=== PATIENT | female | born 1990 | race African-American/Black ===

== ENCOUNTER 2021-05-03 15:08 | Emergency (ER) | payer OTHER, SELFPAY ==
--- NOTE | 2021-05-03 | ECG_ITS ---
Test Reason : CHEST PAIN Blood Pressure : / mmHG Vent. Rate : 059 BPM Atrial Rate : 059 BPM P-R Int : 138 ms QRS Dur : 096 ms QT Int : 448 ms P-R-T Axes : 060 070 051 degrees QTc Int : 443 ms Sinus bradycardia RSR' or QR pattern in V1 suggests right ventricular conduction delay Nonspecific ST abnormality Abnormal ECG No previous ECGs available Referred By: Abel Loyd Electronically Signed By:LILLIAM LOPEZ MD
--- NOTE | ~2021-05-03 | XR_ITS ---
EXAMINATION: XR CHEST CLINICAL INFORMATION: Chest pain. COMPARISON: Chest done on 01/03/2020. TECHNIQUE: Frontal view of the chest was obtained. FINDINGS: Minimal blunting of the right lateral CP angle is noted, may represent trace amount of effusion, new since prior study. Both lung el are clear. The cardiomediastinal silhouette is within normal limit. No evidence of any pneumothorax. The visualized upper abdomen is unremarkable. XR/XR chest 1V IMPRESSION: Minimal blunting of the right lateral CP angle, may represent trace amount of effusion, new since 01/03/2020. Otherwise unremarkable.
[2021-05-03 15:32] VITALS: BP 124/74; BP 178/77; PULSE 84; PULSE 88; RESP 18; TEMP 36.8; O2SAT 100; O2SAT 99; BMI 20.3
[2021-05-03 16:59] LABS: MANUAL DIFF FLAG NO
[2021-05-03 17:01] LABS: Basophils Percent Auto 0.3 % (0-2); Eosinophils Absolute Auto 0.2 X10*3/uL (0.0-0.4); Hematocrit 42.8 % (37.0-47.0); Hemoglobin 14.3 g/dl (12.0-16.0); Imm Gran Abs Auto 0.02 X10*3/uL (0.00-0.03); Imm Gran Pct Auto 0.2 % (0.0-0.4); Lymphocytes Absolute Auto 2.4 X10*3/uL (1.2-4.9); Lymphocytes Percent Auto 24.4 % (20-40); Mean Corpuscular HGB Conc 33.4 g/dl (31.0-35.0); Mean Corpuscular Volume 89.9 fL (80.0-98.0); Mean Platelet Volume 11.3 fL (9.4-12.3); Monocytes Absolute Auto 0.9 X10*3/uL (0.1-1.2); Monocytes Percent Auto 9.5 % (2-11); Neutrophils Absolute Auto 6.1 x10*3/uL (2.0-8.3); Neutrophils Percent Auto 63.6 % (45-73); Platelet Count 227 X10*3/uL (160-400); Red Blood Count 4.76 X10*6/uL (4.20-5.50); Red Cell Distribution Width 13.1 % (11.0-16.0); White Blood Count 9.6 X10*3/uL (4.8-10.8)
[2021-05-03 17:14] LABS: Lactic Acid 0.9 mmol/L (0.5-2.0)
[2021-05-03 17:16] LABS: Anion Gap 13 (12-20); Blood Urea Nitrogen 12 mg/dL (9-16); Calcium 9.7 mg/dL (8.4-10.2); Carbon Dioxide 24 mmol/L (22-29); Chloride 104 mmol/L (96-108); Estimated Glomerular Filt Rate > 60; Glucose Random 88 mg/dL (60-115); Potassium 3.8 mmol/L (3.3-5.1); Sodium 137 mmol/L (135-145)
[2021-05-03 17:19] LABS: Appearance Urine CLEAR; Color Urine YELLOW; Glucose Urine UA NEG (NEG); Leukocyte Esterase Urine NEG (NEG); Nitrite Urine NEG (NEG); Specific Gravity - Urine 1.025 (1.005-1.025); Urine Blood NEG (NEG); Urine Ketones 5 MG/DL (NEG); Urine Protein NEG (NEG-TRACE)
--- NOTE | 2021-05-03 17:53 | ED_ITS ---
HPI - General Adult General Chief complaint: General Medical Stated complaint: SKIN INFECTION Time Seen by Provider: 05/03/21 17:42 Source: patient and EMS Mode of arrival: EMS Limitations: no limitations History of Present Illness HPI narrative: 30-year-old female with a past medical history of hydradenitis here with complaints of left upper extremity redness and swelling for about 1 month. Pain radiates to the chest and back. Today the abscess started draining on its own. no fevers or chills. Related Data Previous Rx's Medication Instructions Recorded acetaminophen 300 mg-codeine 30 mg 1 tab PO Q6H PRN #8 tab 05/03/21 tablet doxycycline monohydrate 100 mg 100 mg PO BID 7 Days #14 cap 05/03/21 capsule Allergies Allergy/AdvReac Type Severity Reaction Status Date / Time No Known Allergies Allergy Verified 05/03/21 15:31 [No Known Allergies*] Review of Systems Review of Systems: Yes all other systems are reviewed and are negative Constitutional: Constitutional: Reports no additional constitutional complaints, Denies body ache(s), Denies chills, Denies fever(s), Denies headache(s) and Denies weakness Eyes: Eyes: Reports no additional eye complaints and Denies change in vision ENT: Reports system reviewed and no additional complaints, except as documented, Denies dizziness, Denies headache(s), Denies nasal congestion, Denies nasal discharge and Denies neck pain Cardiovascular: Cardiovascular: Reports no additional cardiovascular complaints, Reports chest pain, Denies leg edema and Denies dyspnea Respiratory: Respiratory: Reports no additional respiratory complaints, Denies cough and Denies dyspnea Gastrointestinal: Gastrointestinal: Reports no additional gastrointestinal complaints, Denies abdominal pain, Denies diarrhea, Denies nausea and Denies vomiting Genitourinary: Genitourinary: Reports no additional female genitourinary complaints and Denies urinary incontinence Musculoskeletal: Musculoskeletal: Reports no additional musculoskeletal complaints, Reports back pain, Denies arthralgias, Denies joint swelling, Denies neck pain, Denies numbness and Denies tingling Integumentary/Breasts: Skin/Breast: Reports system reviewed and no additional complaints, except as docu, Reports swelling, Reports erythema and Denies rash Neurologic: Reports system reviewed and no additional complaints, except as documented, Denies Abnormal speech present, Denies dizziness, Denies headache(s), Denies numbness, Denies tingling and Denies weakness PMFSH Past Medical History Attestation statement: The following information was validated with the patient. Source: old records reviewed and nursing notes reviewed Medical History Hidradenitis suppurativa Social History Social History Advance Directives: No Advance Directives Information Provided: Yes Patient : No Physical Exam Vital Signs: Vital Signs: Last Vital Signs Temp 98.3 F 05/03/21 15:32 Pulse 84 05/03/21 15:32 Resp 18 05/03/21 15:32 BP 178/77 H 05/03/21 15:32 Pulse Ox 99 05/03/21 15:32 Body Mass Index 20.3 Const: General: cooperative, healthy appearing, comfortable and no acute distress Orientation/consciousness: patient oriented x3 Limitations: no limitations HENMT: Head: Yes normal to inspection Ears: hearing grossly normal bilaterally General nose exam: Normal external nose present Face and sinus: Yes normal facial exam Mouth: Normal oral and palatal mucosa present Throat: Yes posterior oropharynx normal Eyes: General: appearance normal, both eyes and all related structures Pupils: Equal, round and reactive pupils present Neck: Neck: Yes normal visual inspection Chest: Chest palpation & inspection: normal inspection of the chest Resp: Effort & Inspection: normal respiratory effort Auscultation: clear to auscultation bilaterally Cardio: Rate: regular rate Rhythm: regular rhythm Peripheral pulses: Peripheral pulses 2+ throughout GI: Inspection: Yes normal to inspection Palpation (GI): Soft to palpation and nontender Auscultation: normal bowel sounds Back/Spine/Pelvis: Thoracic/Lumbar Spine: thoracic and lumbar spine normal to inspection Skin: General skin exam: no rashes or lesions noted Neuro: General: patient oriented x3, no focal motor deficits and normal sensation to monofilament Cranial nerves: Yes Equal, round and reactive pupils present Cognition (Neuro): normal cognition Speech: No Abnormal speech present Gait exam (Neuro): Normal gait present Motor exam (neuro): 5/5 motor strength present throughout Extrem: Other: To the left upper inner extremity there is a medium-sized abscess with drainage present. Local swelling and erythema which is not circumferential. General: Yes normal to inspection Course Course Course Narrative: 30-year-old female here with abscess the left upper extremity for about 1 week that is now draining. No fevers or chills. Pain does radiate to the chest and back. Reviewed labs, chest x-ray and EKG from triage. All unremarkable. Will need I&D and course of antibiotics. See procedure note Procedures Abscess I/D Site: upper extremity Side (if applicable): left Local Anesthetic: lidocaine 2% Amount of anesthesia used (mL): 5 Technique: incised with blade Sent for culture/gram staining?: No Irrigation: No Packing used?: iodoform Medical Decision Making MDM Narrative Medical decision making narrative: Perc score 0 Less likely ACS with negative troponin and EKG Medical Records Medical records reviewed: Yes I reviewed the patient's medical records. Lab Data Lab results reviewed: Yes I reviewed the patient's lab results. Result diagrams: 05/03/21 16:53 05/03/21 16:53 Labs: Lab Results 05/03/21 05/03/21 05/03/21 Range/Units 16:53 16:53 16:53 WBC 9.6 (4.8-10.8) X10*3/uL RBC 4.76 (4.20-5.50) X10*6/uL Hgb 14.3 (12.0-16.0) g/dl Hct 42.8 (37.0-47.0) % MCV 89.9 (80.0-98.0) fL MCH 30.0 (27.0-33.0) pg MCHC 33.4 (31.0-35.0) g/dl RDW 13.1 (11.0-16.0) % Plt Count 227 (160-400) X10*3/uL MPV 11.3 (9.4-12.3) fL Immature Gran % (Auto) 0.2 (0.0-0.4) % Neut % (Auto) 63.6 (45-73) % Lymph % (Auto) 24.4 (20-40) % [place] % (Auto) 9.5 (2-11) % Eos % (Auto) 2.0 (0-4) % Baso % (Auto) 0.3 (0-2) % Lymph # (Auto) 2.4 (1.2-4.9) X10*3/uL Summers # (Auto) 0.9 (0.1-1.2) X10*3/uL Eos # (Auto) 0.2 (0.0-0.4) X10*3/uL Baso # (Auto) 0.0 (0.0-0.2) X10*3/uL Abs Immat Gran (auto) 0.02 (0.00-0.03) X10*3/uL Absolute Neuts (auto) 6.1 (2.0-8.3) x10*3/uL Absolute Nucleated RBC 0.000 (0.0-0.012) X10*3/uL Nucleated RBC % (auto) 0.0 (0.0-0.2) /100WBC Sodium 137 (135-145) mmol/L Potassium 3.8 (3.3-5.1) mmol/L Chloride 104 (96-108) mmol/L Carbon Dioxide 24 (22-29) mmol/L Anion Gap 13 (12-20) BUN 12 (9-16) mg/dL Creatinine 0.78 (0.5-1.4) mg/dL Estim Creat Clear Calc 86.0 Estimated GFR > 60 Random Glucose 88 (60-115) mg/dL Lactic Acid 0.9 (0.5-2.0) mmol/L Calcium 9.7 (8.4-10.2) mg/dL Urine Color Urine Appearance Urine pH (5.0-8.0) Ur Specific [place] (1.005-1.025) Urine Protein (NEG-TRACE) MG/DL Urine Glucose (UA) (NEG) MG/DL Urine Ketones (NEG) MG/DL Urine Blood (NEG) Urine Nitrite (NEG) Ur Leukocyte Esterase (NEG) 05/03/21 Range/Units 17:11 WBC (4.8-10.8) X10*3/uL RBC (4.20-5.50) X10*6/uL Hgb (12.0-16.0) g/dl Hct (37.0-47.0) % MCV (80.0-98.0) fL MCH (27.0-33.0) pg MCHC (31.0-35.0) g/dl RDW (11.0-16.0) % Plt Count (160-400) X10*3/uL MPV (9.4-12.3) fL Immature Gran % (Auto) (0.0-0.4) % Neut % (Auto) (45-73) % Lymph % (Auto) (20-40) % Summers % (Auto) (2-11) % Eos % (Auto) (0-4) % Baso % (Auto) (0-2) % Lymph # (Auto) (1.2-4.9) X10*3/uL [place]mers # (Auto) (0.1-1.2) X10*3/uL Eos # (Auto) (0.0-0.4) X10*3/uL Baso # (Auto) (0.0-0.2) X10*3/uL Abs Immat Gran (auto) (0.00-0.03) X10*3/uL Absolute Neuts (auto) (2.0-8.3) x10*3/uL Absolute Nucleated RBC (0.0-0.012) X10*3/uL Nucleated RBC % (auto) (0.0-0.2) /100WBC Sodium (135-145) mmol/L Potassium (3.3-5.1) mmol/L Chloride (96-108) mmol/L Carbon Dioxide (22-29) mmol/L Anion Gap (12-20) BUN (9-16) mg/dL Creatinine (0.5-1.4) mg/dL Estim Creat Clear Calc Estimated GFR Random Glucose (60-115) mg/dL Lactic Acid (0.5-2.0) mmol/L Calcium (8.4-10.2) mg/dL Urine Color YELLOW Urine Appearance CLEAR Urine pH 6.0 (5.0-8.0) Ur Specific [place] 1.025 (1.005-1.025) Urine Protein NEG (NEG-TRACE) MG/DL Urine Glucose (UA) NEG (NEG) MG/DL Urine Ketones 5 (NEG) MG/DL Urine Blood NEG (NEG) Urine Nitrite NEG (NEG) Ur Leukocyte Esterase NEG (NEG) Imaging Data Chest x-ray: Attestation: I personally reviewed and interpreted this imaging study as follows: Radiologist's impression: CLINICAL INFORMATION: Chest pain. COMPARISON: Chest done on 01/03/2020. TECHNIQUE: Frontal view of the chest was obtained. FINDINGS: Minimal blunting of the right lateral CP angle is noted, may represent trace amount of effusion, new since prior study. Both lung el are clear. The cardiomediastinal silhouette is within normal limit. No evidence of any pneumothorax. The visualized upper abdomen is unremarkable. XR/XR chest 1V IMPRESSION: Minimal blunting of the right lateral CP angle, may represent trace amount of effusion, new since 01/03/2020. Otherwise unremarkable. ? ECG Data Attestation: I personally reviewed and interpreted this ECG as follows: Interpretation: Normal sinus rhythm with a rate 59, normal MA, normal QRS, normal QT Discharge Plan Discharge Clinical Impression: Hidradenitis suppurativa of left axilla, Atypical chest pain Patient Disposition: Home, Self-Care Instructions: Chest Wall Pain (ED), Hidradenitis Suppurativa (ED) Additional Instructions: Return for packing removal in 48 hours Prescriptions: New acetaminophen-codeine 300-30 mg tablet 1 tab PO Q6H PRN (Reason: pain) Qty: 8 RF: 0 doxycycline monohydrate 100 mg capsule 100 mg PO BID 7 Days Qty: 14 RF: 0 Referrals: Physician,Unknown J [Primary Care Provider] - 2 days
[2021-05-03] MEDS: Acetaminophen 325 MG TABLET 975 MG PO (18:38)
[2021-05-03] MEDS: Lidocaine HCl 2 % MPF 5 ML VIAL SUBCUT (18:38)
[2021-05-03 18:44] VITALS: BP 112/70; PULSE 77; RESP 14; TEMP 37; O2SAT 100
== END 2021-05-03 19:11 | disposition home or self-care (01) ==
PROVIDERS: Emergency Provider Emergency Medicine Emergency Medical Services
DX: L73.2 Hidradenitis suppurativa (principal); R07.89 Other chest pain
CPT/HCPCS: 10060; 36415; 71045; 80048; 81003; 83605; 85025; 87040; 93005; 99284

== ENCOUNTER 2021-10-17 12:29 | Emergency (ER) | payer OTHER, SELFPAY ==
--- NOTE | ~2021-10-17 | XR_ITS ---
EXAMINATION: XR SHOULDER, RIGHT CLINICAL INFORMATION: Pain, history subluxation/dislocation COMPARISON: Radiographs right shoulder 01/03/2020 TECHNIQUE: Right shoulder is imaged in 3 views. Preliminary wet read provided earlier at time of IT down time. FINDINGS: No fracture, dislocation, destructive process. The acromioclavicular alignment is normal. The glenohumeral joint appears normal. There are no visible rotator cuff calcifications. XR/XR shoulder RT min 2V IMPRESSION: Unremarkable right shoulder.
--- NOTE | ~2021-10-17 | XR_ITS ---
EXAMINATION: XR HAND, RIGHT CLINICAL INFORMATION: Metacarpal tenderness COMPARISON: Metacarpal tenderness. TECHNIQUE: Right hand is imaged in 3 views. Preliminary wet read provided earlier during IT downtime. FINDINGS: No fracture, dislocation, or arthropathy. The ulnar variance is neutral. There is no joint narrowing or erosive changes. Normal bony mineralization. XR/XR hand RT min 3V IMPRESSION: Normal right hand.
[2021-10-17 13:06] VITALS: BP 149/42; PULSE 66; RESP 18; TEMP 36.7; O2SAT 99; BMI 21.2
[2021-10-17] MEDS: Ketorolac Tromethamine 30 MG/ML VIAL IM (13:33)
--- NOTE | 2021-10-17 13:43 | ED_ITS ---
HPI - Extremity Problem General Chief complaint: Extremity Injury, Upper Stated complaint: jammed finger/shoulder pain Time Seen by Provider: 10/17/21 13:27 Source: patient Mode of arrival: ambulatory Limitations: no limitations History of Present Illness HPI Narrative: 31-year-old female presents with right middle finger pain and pain in her right shoulder. Patient states 2 days ago she was playing with her children, and hit her right middle finger on a metal heater In addition, patient states that her right shoulder has been dislocating more frequently. States for the last year her right shoulder will ?pop out? and it is painful to move her right shoulder. No trauma. She did have a fall years ago, but no recent trauma. States the right shoulder dislocating can happen 3 or 4 times a day and is happening more often this last week. She has never seen orthopedics for this. Related Data Previous Rx's Medication Instructions Recorded acetaminophen 300 mg-codeine 30 mg 1 tab PO Q6H PRN #8 tab 05/03/21 tablet doxycycline monohydrate 100 mg 100 mg PO BID 7 Days #14 cap 05/03/21 capsule ketorolac 10 mg tablet 10 mg PO Q6H 5 Days #20 tab 10/17/21 Allergies Allergy/AdvReac Type Severity Reaction Status Date / Time No Known Allergies Allergy Verified 05/03/21 15:31 [No Known Allergies*] Review of Systems Constitutional: Constitutional: Denies body ache(s), Denies chills, Denies fa tigue, Denies fever(s), Denies headache(s), Denies malaise and Denies weakness Eyes: Eyes: Denies diplopia ENT: Denies vertigo, Denies dizziness, Denies headache(s) and Denies throat swelling Cardiovascular: Cardiovascular: Denies chest pain, Denies syncope, Denies leg edema, Denies lightheadedness, Denies Loss of Consciousness, Denies palpitations and Denies dyspnea Respiratory: Respiratory: Denies chest congestion, Denies cough and Denies dyspnea Gastrointestinal: Gastrointestinal: Denies abdominal pain, Denies hematochezia, Denies constipation, Denies diarrhea and Denies vomiting Musculoskeletal: Musculoskeletal: Reports arthralgias, Reports joint swelling, Reports limited range of motion, Denies numbness, Reports stiffness and Denies tingling Integumentary/Breasts: Skin/Breast: Denies erythema, Denies skin pain, Denies skin swelling and Denies wounds Neurologic: Denies confusion, Denies vertigo, Denies dizziness, Denies syncope, Denies headache(s), Denies numbness, Denies tingling and Denies weakn ess Psychiatric: Psychiatric: Denies anxiety, Denies confusion and Denies depression Endocrine: Endocrine: Denies fatigue and Denies palpitations Allergic/Immunologic: Allergic/Immunologic: Denies throat swelling PMFSH Past Medical History Medical History Hidradenitis suppurativa Social History Social History Advance Directives: No Advance Directives Information Provided: No Patient : No Physical Exam Vital Signs: Vital Signs: Last Vital Signs Temp 98.0 F 10/17/21 13:06 Pulse 66 10/17/21 13:06 Resp 18 10/17/21 13:06 BP 149/42 H 10/17/21 13:06 Pulse Ox 99 10/17/21 13:06 BMI result Body Mass Index 21.2 Const: General: No confusion Nutritional Appearance: well nourished Orientation/consciousness: No confusion Limitations: no limitations Eyes: Conjunctivae: conjunctivae normal Pupils: Equal, round and reactive pupils present EOM: EOMs intact bilaterally Neck: Neck: Yes full ROM, Yes no lymphadenopathy and Yes supple Resp: Effort & Inspection: normal respiratory effort and able to speak in complete sentences Auscultation: clear to auscultation bilaterally, no crackles, no rales, no rhonchi and no wheezes Cardio: Rate: regular rate Rhythm: regular rhythm Heart sounds: S1 normal heart sound present and S2 normal heart sound present GI: Inspection: Yes normal to inspection Palpation (GI): Soft to palpation, nontender, no guarding and not rigid Percussion: Yes normal to percussion Auscultation: normal bowel sounds Skin: General skin exam: no rashes or lesions noted Neuro: General: No confusion Cranial nerves: Yes Equal, round and reactive pupils present Extrem: Right upper extremity: normal capillary refill, shoulder/upper arm Details: normal to inspection, tenderness Location: of the A-C joint and of the proximal humerus and abnormal ROM Details: pain with active ROM Details: in ADduction, in ABduction, in extension, in flexion, in internal rotation and external rotation-; Negative for no swelling and Extremity exam: right hand Details: abnormal to inspection Details: joint swelling, normal capillary refill, neuromotor exam normal, neurosensory exam normal, tenderness Location: of the 3rd digit Location: at the PIP joint and swelling Location: of the 3rd digit Location: at the PIP joint and on the dorsal aspect Psych: Appearance: grossly normal Affect: normal affect Attitude: coop erative Thought process: Normal thought process present Course Course Course Narrative: 31-year-old female with no known connective tissue disorder presents with right middle finger pain after hitting her finger on a metal heater, and right shoulder pain after multiple subluxations or dislocations of her right shoulder On exam, patient has intact range of motion of right elbow, she is tender over her entire right shoulder, no localized pain. Patient cannot range her right shoulder due to pain. In addition, patient has swelling, and tenderness over right middle fingers specially dorsal aspect of PIP joint. Patient also has tenderness to palpation in all of her metacarpal bones of her right hand. Intact right upper extremity pulses, sensation, patient has good production operations inspector strength. X-ray hand, shoulder, right 3rd finger, gave Toradol. Reevaluation(s) Reevaluation #1: X-ray right shoulder and right hand negative for fracture. Our PACS is down, this was a handwritten report. No mention of finger on paper x-ray report, I called x-ray tech, she stated x- ray right middle finger was negative per radiologist Will give shoulders Rafael, his finger splint, follow-up with orthopedics. Ketorolac Discharge Plan Discharge Clinical Impression: Finger sprain, Right shoulder pain Patient Disposition: Home, Self-Care Instructions: Finger Sprain (ED), R.I.C.E. Treatment (ED), Shoulder Pain (ED) Additional Instructions: Please call Dr. Zarate and the following number, he is an orthopedist. [phone] I have referred you, but I would also like you to call him. Please rest the right hand, use the sling for shoulder, and this been free of finger. If you have worsening pain, please return to emergency. Prescriptions: New ketorolac 10 mg tablet 10 mg PO Q6H 5 Days Qty: 20 0RF No Action acetaminophen-codeine 300-30 mg tablet 1 tab PO Q6H PRN (Reason: pain) Qty: 8 0RF doxycycline monohydrate 100 mg capsule 100 mg PO BID 7 Days Qty: 14 0RF Referrals: Tonio Zarate MD [Physician] -
[2021-10-17] MEDS: oxyCODONE HCl Immed Release 5 MG TABLET PO (15:03)
== END 2021-10-17 16:07 | disposition home or self-care (01) ==
PROVIDERS: Emergency Provider Emergency Medicine
DX: S63.612A Unspecified sprain of right middle finger, initial encounter (principal); M25.511 Pain in right shoulder; W22.09XA Striking against other stationary object, initial encounter; Y93.9 Activity, unspecified; Y92.9 Unspecified place or not applicable; Y99.9 Unspecified external cause status
CPT/HCPCS: 73030; 73130; 96372; 99283; 99284; J1885

== ENCOUNTER 2022-01-19 15:30 | Emergency (ER) | payer OTHER, SELFPAY ==
[2022-01-19 15:38] VITALS: BP 118/75; PULSE 92; RESP 18; TEMP 38.1; O2SAT 99; BMI 21.2
[2022-01-19 16:07] LABS: COVID-19 Test Positive (Negative)
[2022-01-19] MEDS: Cyclobenzaprine HCl 10 MG TABLET PO (17:41)
[2022-01-19] MEDS: Ibuprofen 800 MG TABLET PO (17:41)
[2022-01-19] MEDS: Lidocaine HCl 1 % MPF 5 ML VIAL SUBCUT (17:42)
--- NOTE | 2022-01-19 18:07 | ED_ITS ---
HPI - General Adult General Chief complaint: General Medical Stated complaint: Neck pain/Body aches Time Seen by Provider: 01/19/22 17:06 Source: patient Mode of arrival: ambulatory Limitations: no limitations History of Present Illness HPI narrative: 31-year-old female with a past medical history of Hirdradenitis suppurative presenting to ER with complaints of chills, fatigue, malaise, intermittent dry cough since yesterday worse today. She also reports an abscess to her left armpit for the past few days. She reports she had a positive COVID test at home. Reports that she is vaccinated for to COVID. She denies any recent travel or sick contacts. She denies any measured fevers at home due to she did not have a thermometer. She denies any dizziness, neck stiffness, sore throat, trouble swallowing or breathing, trismus, drooling, productive cough, shortness of breath, chest pain, dyspnea on exertion, orthopnea, palpitations, nausea/vomiting/diarrhea constipation, black or bloody stools, dysuria, h ematuria, abnormal vaginal discharge, rashes or any other symptoms complaints or concerns at this time. Related Data Previous Rx's Medication Instructions Recorded acetaminophen 300 mg-codeine 30 mg 1 tab PO Q6H PRN pain #8 tabs 05/03/21 tablet doxycycline monohydrate 100 mg 100 mg PO BID 7 days #14 caps 05/03/21 capsule ketorolac 10 mg tablet 10 mg PO Q6H 5 days #20 tabs 10/17/21 acetaminophen 500 mg tablet 1,000 mg PO QID PRN fever or pain 01/19/22 (Tylenol Extra Strength) #14 tabs cephalexin 500 mg capsule 500 mg PO Q6H 10 days #40 caps 01/19/22 codeine 10 mg-guaifenesin 100 mg/5 5 ml PO Q6H PRN cold symptoms #120 01/19/22 mL oral liquid (Guaifenesin AC) mL cyclobenzaprine 10 mg tablet 10 mg PO Q8H PRN Muscle spasm #14 01/19/22 tabs doxycycline monohydrate 100 mg 100 mg PO BID 10 days #20 tabs 01/19/22 tablet ibuprofen 800 mg tablet 800 mg PO Q8H PRN pain #14 tabs 01/19/22 Allergies Allergy/AdvReac Type Severity Reaction Status Date / Time No Known Allergies Allergy Verified 01/19/22 15:38 [No Known Allergies*] Review of Systems Review of Systems: Constitutional : No Weight loss, + Fever, + Chills, No Night Sweats, + Fatigue, + Malaise ENT/Mouth : No Hearing loss, No Ear Pain, No Nasal Congestion, No Sinus Pain, No Hoarseness, No sore throat, No Rhinorrhea, No Swallowing Difficulty Eyes: No Eye Pain, No Swelling, No Redness, No Foreign Body, No Discharge, No Vision Changes Cardiovascular : No Chest Pain, No SOB, No Dyspnea on Exertion, No Orthopnea, No Edema, No Palpitations Respiratory : + Cough, No Sputum, No Wheezing, No Smoke Exposure, No Dyspnea Gastrointestinal : No Nausea, No Vomiting, No Diarrhea, No Constipation, No abdominal Pain, No Hematochezia, No Melena Genitourinary : no irregular bleeding, No Dysuria, No Urinary Frequency, No Hematuria, No Urinary Incontinence, No Urgency, No Flank Pain, No Urinary Flow Changes, No Hesitancy Musculoskeletal : No joint pain, + Myalgias, No Joint Swelling Skin : + left axillary abscess, No Skin Lesions, No rash Neuro : No Weakness, No Numbness, No Paresthesias, No Loss of Consciousness, No Dizziness, No Headache Psych : No Anxiety/Panic, No Depression, No SI/HI/AH/VH, No Social Issues, Heme/Lymph: No Bruising, No Bleeding,No Lymphadenopathy Endocrine : No Polyuria, No Polydipsia, No Temperature Intolerance Yes all other systems are reviewed and are negative [facility] Past Medical History Attestation statement: The following information was validated with the patient. Source: old records reviewed and nursing notes reviewed Medical History Hidradenitis suppurativa Social History Social History Advance Directives: No Advance Directives Information Provided: No Physical Exam ED Vital Signs: Vital Signs - 24 hr 01/19/22 15:38 Temperature 100.6 F H Pulse Rate 92 Respiratory Rate 18 Blood Pressure 118/75 Pulse Oximetry 99 Oxygen Delivery Method Room Air BMI result Body Mass Index 21.2 vital signs have been reviewed as normal and appeared to be correct. Blood pressure normal. Heart rate normal. Respiration rate normal. Temperature 100.6. Oxygen saturation normal. Appearance: Alert. Oriented X3. No acute distress. Head: Normal external exam. Normocephalic. Atraumatic. Eyes: PERRLA. EOMI. Conjunctiva and sclera normal. Eyelids normal. ENT: EAC normal. TM's Normal. Pharynx normal. Uvula midline. Moist mucous membranes. No lesions/ulcerations or masses noted on the tongue. Normal voice. No trismus noted. No drooling noted. No muffled voice noted. Neck: Normal inspection. Neck supple. FROM. No adenopathy. Thyroid Normal. No tracheal deviation noted. No crepitus is noted. No meningeal signs. CVS: Normal heart rate and rhythm. Heart sound normal. Pulses normal throughout. No murmurs/rales/gallops. Respiratory: No respiratory distress. Painless inspiration. Breath sounds normal. No wheezes/rales/rhonchi noted. Chest nontender. No accessory muscle usage noted or decreased air movement noted. Abdomen: Soft and nontender. Bowel sounds normal in all 4 quadrants. No distention noted. No organomegaly noted. No visible injury noted. Back: No CVA tenderness. Full range of motion noted. Nontender. No signs of trauma. Patient neuro intact bilaterally and distally on all 4 extremities. Patient's reflexes intact bilaterally and distally on all 4 extremities. No rashes/lesion/induration/fluctuance or signs of infection noted. Skin: Skin warm and dry. Normal skin color. Normal skin turgor. To left axillary area patient has fluctuant abscess with mild surrounding erythema. No streaking/purulent drainage at this time. No additional rashes/lesions/lacerations noted. Extremities: Extremities exhibit normal range of motion and nontender. Neuro: Oriented X 3. No motor deficit. No sensory deficit. Reflexes normal. Normal steady gait. No focal neuro deficits noted. CN's II-XII intact bilaterally? Vascular: + radial pulses/+ 2 distal pedal pulses/+2 dorsalis pedis b/l. Normal cap refill. No cyanosis noted to upper extremity nails and lower extremity toes nails. Course Course Course Narrative: Patient positive for COVID. No additional labs or imaging indicated. Patient now status post I&D of abscess to the left axillary area. Patient tolerated procedure well. No packing. No complications. Will DC home with antibiotics and symptomatic treatment instructions to self isolate per CDC guidelines and to return if any new or worsening symptoms. Patient understands agrees with this plan. Procedures Abscess I/D Site: upper extremity Side (if applicable): left Local Anesthetic: lidocaine 1% Amount of anesthesia used (mL): 4 Technique: incised with blade Amount of fluid expressed (mL): 5 Sent for culture/gram staining?: No Irrigation: Yes Packing used?: none Complications: other (No complications) Medical Decision Making Medical Records Medical records reviewed: Yes I reviewed the patient's medical records. Lab Data Lab results reviewed: Yes I reviewed the patient's lab results. Labs: Lab Results 01/19/22 Range/Units 15:45 COVID-19 (MELE) Positive A (Negative) COVID-19 Clin Com See Note Discharge Plan Discharge Clinical Impression: Suppurative hidradenitis, COVID-19, Fever Patient Disposition: Home, Self-Care Instructions: Hidradenitis Suppurativa (ED), COVID-19 (Coronavirus Disease 2019) (ED) Additional Instructions: Monitor your oxygen levels with a pulse oximetry monitor if your oxygen drops lower than 90% then you need to return immediately. Otherwise an oxygen level of 90-100 is normal. You should also alternate between Motrin Tylenol every 3 hours therefore he take Motrin at 06:00 he should take Tylenol at 09:00 then Motrin again at 12 in the afternoon then Tylenol again at 3 in the afternoon and Motrin again at 6 in the afternoon than Tylenol again at 9 in the afternoon and continue alternating between Motrin Tylenol every 3 hours. Please self isolate per CDC guidelines. Return if any new or worsening symptoms. Prescriptions: New cyclobenzaprine 10 mg tablet 10 mg PO Q8H PRN (Reason: Muscle spasm) Qty: 14 0RF ibuprofen 800 mg tablet 800 mg PO Q8H PRN (Reason: pain) Qty: 14 0RF acetaminophen [Tylenol Extra Strength] 500 mg tablet 1,000 mg PO QID PRN (Reason: fever or pain) Qty: 14 0RF codeine-guaifenesin [Guaifenesin AC] 10-100 mg/5 mL liquid 5 ml PO Q6H PRN (Reason: cold symptoms) Qty: 120 0RF cephalexin 500 mg capsule 500 mg PO Q6H 10 Days Qty: 40 0RF doxycycline monohydrate 100 mg tablet 100 mg PO BID 10 Days Qty: 20 0RF No Action acetaminophen-codeine 300-30 mg tablet 1 tab PO Q6H PRN (Reason: pain) Qty: 8 0RF doxycycline monohydrate 100 mg capsule 100 mg PO BID 7 Days Qty: 14 0RF ketorolac 10 mg tablet 10 mg PO Q6H 5 Days Qty: 20 0RF Referrals: Physician,Unknown J [Primary Care Provider] - 1 week (your pcp)
== END 2022-01-19 18:40 | disposition home or self-care (01) ==
PROVIDERS: Emergency Provider Emergency Medicine
DX: U07.1 COVID-19 (principal); R50.9 Fever, unspecified; L73.2 Hidradenitis suppurativa; L02.412 Cutaneous abscess of left axilla
CPT/HCPCS: 10060; 87635; 99283; 99284

== ENCOUNTER 2023-04-15 08:31 | Emergency (ER) | payer OTHER, SELFPAY ==
[2023-04-15 09:08] VITALS: BP 123/68; PULSE 56; RESP 18; TEMP 36.7; O2SAT 100; BMI 21.3
[2023-04-15 09:22] LABS: MANUAL DIFF FLAG NO
[2023-04-15 09:24] LABS: Basophils Percent Auto 0.5 % (0-2); Eosinophils Absolute Auto 0.3 X10*3/uL (0.0-0.4); Eosinophils Percent Auto 3.9 % (0-4); Hematocrit 37.6 % (37.0-47.0); Hemoglobin 12.7 g/dl (12.0-16.0); Imm Gran Abs Auto 0.02 X10*3/uL (0.00-0.03); Imm Gran Pct Auto 0.3 % (0.0-0.4); Lymphocytes Absolute Auto 2.3 X10*3/uL (1.2-4.9); Lymphocytes Percent Auto 35.4 % (20-40); Mean Corpuscular HGB Conc 33.8 g/dl (31.0-35.0); Mean Corpuscular Hemoglobin 30.2 pg (27.0-33.0); Mean Corpuscular Volume 89.3 fL (80.0-98.0); Monocytes Absolute Auto 0.6 X10*3/uL (0.1-1.2); Monocytes Percent Auto 9.2 % (2-11); Neutrophils Absolute Auto 3.2 x10*3/uL (2.0-8.3); Neutrophils Percent Auto 50.7 % (45-73); Platelet Count 219 X10*3/uL (160-400); Red Blood Count 4.21 X10*6/uL (4.20-5.50); Red Cell Distribution Width 13.7 % (11.0-16.0); White Blood Count 6.4 X10*3/uL (4.8-10.8)
--- NOTE | 2023-04-15 12:28 | ED.GENADULT ---
HPI - General Adult General Chief complaint: Vaginal Bleeding Stated complaint: Irregular vaginal bleeding Time Seen by Provider: 04/15/23 12:01 Source: patient Mode of arrival: ambulatory Limitations: no limitations History of Present Illness HPI narrative: Patient is a 32-year-old female presenting to the emergency department with complaint of irregular vaginal bleeding for the past several months. Patient reports that she was scheduled to have her Nexplanon implant removed in November of 2021. States bleeding waxes and wanes in intensity. Changed her pad 9 times yesterday, but this morning bleeding was clinical rehab specialist. She states that she contacted her [facility]OUNT DEVELOPMENT ASSOCIATE but does not have appointment until the end of April. She is specifically requesting to have the implant removed in the ED. Reports mild lower abdominal cramping. Denies nausea, vomiting, diarrhea, or constipation. Denies any concern for STIs or , states that she has not been sexually active for several months. MD complaint: vaginal bleeding Onset (ago): month(s) Severity: mild Quality: other (cramping) Pain Consistency: intermittent Relieving factors: none Exacerbating factors: none Associated symptoms: denies other symptoms Treatments prior to arrival: none Related Data Previous Rx's Medication Instructions Recorded acetaminophen 300 mg-codeine 30 mg 1 tab PO Q6H PRN pain #8 tabs 05/03/21 tablet doxycycline monohydrate 100 mg 100 mg PO BID 7 days #14 caps 05/03/21 capsule ketorolac 10 mg tablet 10 mg PO Q6H 5 days #20 tabs 10/17/21 acetaminophen 500 mg tablet 1,000 mg (2 x 500 mg) PO QID PRN 01/19/22 (Tylenol Extra Strength) fever or pain #14 tabs cephalexin 500 mg capsule 500 mg PO Q6H 10 days #40 caps 01/19/22 codeine 10 mg-guaifenesin 100 mg/5 5 ml PO Q6H PRN cold symptoms #120 01/19/22 mL oral liquid (Guaifenesin AC) mL cyclobenzaprine 10 mg tablet 10 mg PO Q8H PRN Muscle spasm #14 01/19/22 tabs doxycycline monohydrate 100 mg 100 mg PO BID 10 days #20 tabs 01/19/22 tablet ibuprofen 800 mg tablet 800 mg PO Q8H PRN pain #14 tabs 01/19/22 celecoxib 200 mg capsule 200 mg PO BID #14 caps 04/15/23 nitrofurantoin macrocrystal 100 mg 100 mg PO BID #10 caps 04/15/23 capsule Allergies Allergy/AdvReac Type Severity Reaction Status Date / Time No Known Allergies Allergy Verified 04/15/23 09:12 [No Known Allergies*] Review of Systems Review of Systems: As per HPI. Yes all other systems are reviewed and are negative Constitutional: Constitutional: Reports as per HPI [facility] Past Medical History Medical History Hidradenitis suppurativa Social History Social History Advance Directives: No Advance Directives Information Provided: No Physical Exam ED Vital Signs: Vital Signs - 24 hr 04/15/23 09:08 Temperature 98.0 F Pulse Rate 56 Respiratory Rate 18 Blood Pressure 123/68 Pulse Oximetry 100 Oxygen Delivery Method Room Air BMI result Body Mass Index 21.3 Vital signs have been reviewed and appear to be correct. Blood pressure normal. Heart rate normal. Respiratory rate normal. Temperature normal. Oxygen saturation normal. Const General: cooperative, healthy appearing and no acute distress Orientation/consciousness: oriented to person, oriented to place, oriented to time and patient oriented x3 Limitations: no limitations HENMT Head: Yes normocephalic and Yes atraumatic Ears: external ears normal General nose exam: Normal external nose present Face and sinus: Yes face symmetric Mouth: oropharynx normal and moist mucous membranes Throat: Yes uvula midline Eyes Pupils: Equal, round and reactive pupils present Neck Neck: Yes normal visual inspection and Yes supple Resp Effort & Inspection: normal respiratory effort and able to speak in complete sentences Auscultation: clear to auscultation bilaterally Cardio Rate: regular rate Rhythm: regular rhythm Heart sounds: S1 normal heart sound present and S2 normal heart sound present GI Palpation (GI): Soft to palpation and nontender Auscultation: normoactive bowel sounds General: Yes no CVA tenderness Back/Spine/Pelvis Back: no CVA tenderness Skin General skin exam: elasticity normal and turgor normal Neuro General: oriented to person, oriented to place, oriented to time, patient oriented x3, moves all extremities, no focal motor deficits and CN's II-XI intact bilaterally Cranial nerves: Yes Equal, round and reactive pupils present Cognition (Neuro): normal cognition Extrem General: Yes full ROM, Yes no pedal edema and Yes no calf tenderness Psych Mental Status: mental status grossly normal Affect: normal affect Thought process: Normal thought process present Medical Decision Making Medical Decision Making [facility] Narrative: Patient is a 32-year-old female presenting to the emergency department with complaint of irregular vaginal bleeding for the past several months. On exam patient is awake, A+Ox3, VS WNL, afebrile, normal neurological exam without focal deficits, physical exam findings as above. Given reported symptoms and physical exam findings, initial differential includes abnormal uterine bleeding, unscheduled bleeding related to contraception, , STI. No anemia on CBC. UA positive for 3+ blood, trace leukocytes, trace bacteria, negative . Patient declining testing for STI at this time. Results discussed with patient and given lower abdominal cramping, patient is agreeable to treatment for UTI. Will treat vaginal bleeding with one week course of celecoxib 200mg BID. Instructed patient to follow-up with her OBGYN, [facility] provide [facility] sooner appointment for removal of Nexplanon implant. Return precautions discussed at bedside. Patient verbalized understanding of and agreement with plan. Differential Diagnosis Differential Diagnoses: The differential diagnosis associated with the presentation includes As per MDM. Lab Data [facility] Lab Attestation statement: I reviewed the patient's lab results. As per [facility]. 04/15/23 09:18 Labs: Lab Results 04/15/23 04/15/23 Range/Units 09:18 12:51 WBC 6.4 (4.8-10.8) X10*3/uL RBC 4.21 (4.20-5.50) X10*6/uL Hgb 12.7 (12.0-16.0) g/dl Hct 37.6 (37.0-47.0) % MCV 89.3 (80.0-98.0) fL MCH 30.2 (27.0-33.0) pg MCHC 33.8 (31.0-35.0) g/dl RDW 13.7 (11.0-16.0) % Plt Count 219 (160-400) X10*3/uL MPV 10.0 (9.4-12.3) fL Immature Gran % (Auto) 0.3 (0.0-0.4) % Neut % (Auto) 50.7 (45-73) % Lymph % (Auto) 35.4 (20-40) % Leon % (Auto) 9.2 (2-11) % Eos % (Auto) 3.9 (0-4) % Baso % (Auto) 0.5 (0-2) % Lymph # (Auto) 2.3 (1.2-4.9) X10*3/uL Leon # (Auto) 0.6 (0.1-1.2) X10*3/uL Eos # (Auto) 0.3 (0.0-0.4) X10*3/uL Baso # (Auto) 0.0 (0.0-0.2) X10*3/uL Abs Immat Gran (auto) 0.02 (0.00-0.03) X10*3/uL Absolute Neuts (auto) 3.2 (2.0-8.3) x10*3/uL Absolute Nucleated RBC 0.000 (0.0-0.012) X10*3/uL Nucleated RBC % (auto) 0.0 (0.0-0.2) /100WBC Urine Color Dark Yellow Urine Appearance Hazy Urine pH 7.0 (5.0-9.0) Ur Specific [place] 1.020 (1.005-1.025) Urine Protein 30 (1+) H (Neg-Trace) mg/dL Urine Glucose (UA) Negative (Negative) mg/dL Urine Ketones Negative (Negative) mg/dL Urine Blood Large (3+) H (Negative) Urine Nitrite Negative (Negative) Ur Leukocyte Esterase Trace H (Negative) Urine RBC >20 H (0-2) /HPF Urine WBC 0-5 (0-5) /HPF Ur Squamous Epith Cells 0-2 (0-2) /HPF Urine Bacteria Trace (None Seen) Hyaline Casts 0-2 (0-2) /LPF Urine Test NEGATIVE (NEGATIVE) External Record Review External record reviewed: Inpatient record and Office record Prescription Management I considered prescription management with: Antibiotic and Other Discharge Plan Discharge Clinical Impression: Vaginal bleeding, UTI (urinary tract infection) Patient Disposition: Home, Self-Care Instructions: Urinary Tract Infection in Women (DC), Menorrhagia (ED) Additional Instructions: You were evaluated in the emergency department today for vaginal bleeding. Your bloodwork did not show evidence of anemia. You are being treated for a urinary tract infection with antibiotics, please complete the full course as prescribed. Your vaginal bleeding is likely related to your Nexplanon implant, please follow-up with your [facility] DEVELOPMENT ASSOCIATE to have this removed. [facility] if [facility]. You are being treated with a 1 week course of celecoxib for the vaginal bleeding. DO NOT TAKE ANY OTHER NSAIDs (ibuprofen, naproxen, etc) WHILE TAKING THE CELECOXIB. Please notify your ACCOUNT DEVELOPMENT ASSOCIATE of this. Return to the emergency department if you bleed through more than 1 pad per hour, develop uncontrolled bleeding, shortness of breath, lightheaded/dizziness, chest tightness, abdominal pain, fevers, vomiting or any other concerning symptoms. Prescriptions: New celecoxib 200 mg capsule 200 mg PO BID Qty: 14 0RF nitrofurantoin macrocrystal 100 mg capsule 100 mg PO BID Qty: 10 0RF Rx Instructions: must administer with a meal/food No Action acetaminophen-codeine 300-30 mg tablet 1 tab PO Q6H PRN (Reason: pain) Qty: 8 0RF doxycycline monohydrate 100 mg capsule 100 mg PO BID 7 Days Qty: 14 0RF cyclobenzaprine 10 mg tablet 10 mg PO Q8H PRN (Reason: Muscle spasm) Qty: 14 0RF ibuprofen 800 mg tablet 800 mg PO Q8H PRN (Reason: pain) Qty: 14 0RF acetaminophen [Tylenol Extra Strength] 500 mg tablet 1,000 mg PO QID PRN (Reason: fever or pain) Qty: 14 0RF codeine-guaifenesin [Guaifenesin AC] 10-100 mg/5 mL liquid 5 ml PO Q6H PRN (Reason: cold symptoms) Qty: 120 0RF cephalexin 500 mg capsule 500 mg PO Q6H 10 Days Qty: 40 0RF doxycycline monohydrate 100 mg tablet 100 mg PO BID 10 Days Qty: 20 0RF ketorolac 10 mg tablet 10 mg PO Q6H 5 Days Qty: 20 0RF
[2023-04-15 13:02] LABS: UPreg QC Valid YES; Urine Pregnancy NEGATIVE (NEGATIVE)
[2023-04-15 13:05] LABS: Appearance Urine Hazy; Color Urine Dark Yellow; Glucose Urine UA Negative (Negative); Leukocyte Esterase Urine Trace (Negative); Nitrite Urine Negative (Negative); UMIC TRIGGER UACC YES; Urine Blood Large (3+) (Negative); Urine Ketones Negative (Negative); Urine Protein 30 (1+) mg/dL (Neg-Trace)
[2023-04-15 13:06] LABS: Bacteria Urine Trace (None Seen); Hyaline Casts Urine 0-2 /LPF (0-2); RBC Urine >20 /HPF (0-2); Squamous Epithelial Cell Urine 0-2 /HPF (0-2); WBC Urine 0-5 /HPF (0-5)
== END 2023-04-15 13:52 | disposition home or self-care (01) ==
PROVIDERS: Registered Nurse Emergency; Emergency Provider Emergency Medicine
DX: N39.0 Urinary tract infection, site not specified (principal); N93.9 Abnormal uterine and vaginal bleeding, unspecified
CPT/HCPCS: 36415; 81001; 81003; 81025; 85025; 99282; 99283